=== PATIENT | female | born 1980 | race Two or more races ===

== ENCOUNTER → 2018-07-14 | Outpatient (CLI) | payer OTHER | END | disposition home or self-care (01) | LOC: NUCLEAR 08:30 | DX: K81.0 Acute cholecystitis (principal) | CPT/HCPCS: 78227; A9537 ==

== ENCOUNTER → 2021-06-02 | Outpatient (CLI) | payer OTHER | END | disposition home or self-care (01) | LOC: MAMO-SONO 09:01 | DX: K82.4 Cholesterolosis of gallbladder (principal); N64.59 Other signs and symptoms in breast; Z98.82 Breast implant status; R10.84 Generalized abdominal pain ==